=== PATIENT | male | born 1995 | race Caucasian/White ===

== ENCOUNTER 2017-07-14 22:09 | Inpatient (IN) | payer BC ==
[~2017-07-14] VITALS: Ht 182.9 cm; Wt 137.3 kg
[2017-07-14] MEDS ORDERED: LACTATED RINGER'S 1000ML 1,000 ML IV STA (22:25)
[2017-07-14 23:35] LABS: BASO % 0.1 %; BASO ABS # 0.03 K/uL (0-0.2); COMPLETE YES; HEMATOCRIT 45.2 % (42-52); IG% 0.3 %; LYMPH % 7.6 %; LYMPH ABS # 1.74 K/uL (1.2-3.4); MEAN CELL VOLUME 83.2 fL (80-100); MEAN CORPUSCULAR HEMOGLOBIN 29.1 pg (25-34); MEAN PLATELET VOLUME 10.3 fL (7.4-10.4); MONO % 7.6 %; NEUT % 84.4 %; PLATELET COUNT 308 K/uL (130-400); RED BLOOD COUNT 5.43 M/uL (4.7-6.1)
[2017-07-14 23:47] LABS: PROTHROMBIN TIME (PATIENT) 10.7 SECONDS (9.0-12.0)
[2017-07-14 23:55] LABS: ALT/SGPT 523 U/L (12-78); BLOOD UREA NITROGEN 23 mg/dl (7-18); BUN/CREATININE RATIO 14.8 (10-20); CALCIUM 9.1 mg/dl (8.5-10.1); CARBON DIOXIDE 28 mmol/L (21-32); CHLORIDE 105 mmol/L (98-107); CREATININE 1.52 mg/dl (0.60-1.40); GLUCOSE 103 mg/dl (70-99); MAGNESIUM 2.2 mg/dl (1.8-2.4); POTASSIUM 3.7 mmol/L (3.5-5.1); SODIUM 139 mmol/L (136-145)
[2017-07-15] VITALS (10 sets, daily range): BP systolic 128–161; BP diastolic 81–91; PULSE 76–96; TEMP 36.5–37.4; O2SAT 96–98; Ht 182.9 cm; Wt 137.3 kg
[2017-07-15 00:09] LABS: ALKALINE PHOSPHATASE 80 U/L (45-117)
[2017-07-15] MEDS ORDERED: LACTATED RINGER'S 1000ML 1,000 ML IV SCH ×2 (00:15→17:15)
[2017-07-15 00:33] LABS: INFLUENZA A PCR Neg for Influ A (NEG); INFLUENZA B PCR Neg for Influ B (NEG)
[2017-07-15 00:42] LABS: AST/SGOT 2566 U/L (15-37)
[2017-07-15 00:52] LABS: MANUAL MICROSCOPIC REQUIRED? YES; REVIEW REQ? NO; SULFASALICYLIC ACID POS (NEG); URINE APPEARANCE CLOUDY (CLEAR); URINE COLOR BROWN
[2017-07-15 00:53] LABS: URINE SPECIFIC GRAVITY 1.015 (1.000-1.030)
[2017-07-15 00:56] LABS: URINE AMORPHOUS SEDIMENT PRESENT (NONE PRSENT); URINE GRANULAR CAST 0-3 /lpf (0)
[2017-07-15 00:57] LABS: URINE RBC 0-4 /hpf (0-4)
[2017-07-15 00:58] LABS: URINE BACTERIA 1+ (NEG)
[2017-07-15 00:59] LABS: ZZUR CULT IF INDIC CLEAN CATCH YES
[2017-07-15] MEDS ORDERED: ONDANSETRON INJ 2 MG/ML 2 ML VIAL IV PRN (04:15)
--- NOTE | 2017-07-15 04:18 | EMERGENCY ROOM VISIT NOTE ---
History First contact with patient: 22:13 Chief Complaint: URINARY SYMPTOMS Stated Complaint: BLOOD IN URINE, FEVER Nursing Triage Summary: Pt c/o blood in urine, thinks that his CK may be off since he has muscular distrophy and went on a hike today, pt reports falling a few time. Pt denies pain with urination. History of Present Illness The patient is a 21 year old male who presents to the Emergency Room with complaints of fever, chills, muscle aches, body aches with hematuria and frothy urine the past few hours. Patient has muscular dystrophy and went on a 3 hour hike today for a school project. Shortly after this his symptoms started. Tmax 100 at home. He took Tylenol 1 hour ago. Patient denies chest pain, dyspnea, abdominal pain, vomiting, diarrhea, sore throat, headache, neck stiffness. He is tolerating by mouth fluids and food. He states his CPK normally runs around 2000. Review of Systems See HPI for pertinent positives & negatives. A total of 10 systems reviewed and were otherwise negative. Past Medical/Surgical History Medical Problems: (1) ANGE (acute kidney injury) (2) Rhabdomyolysis Muscular Dystrophy Social History Smoking Status: Never Smoker Smokeless Tobacco Use: No Alcohol Use: occasionally Drug Use: none Marital Status: in relationship Occupation Status: [employer] student Current/Historical Medications No Active Prescriptions or Reported Meds Physical Exam Vital Signs Date Time Temp Pulse Resp B/P (MAP) Pulse Ox O2 Delivery O2 Flow Rate FiO2 07/15/17 02:03 80 18 147/73 96 Room Air 07/14/17 23:19 98 Room Air 07/14/17 22:16 37.5 114 18 139/90 97 Room Air Physical Exam VITALS: Vitals are noted on the nurse's note and reviewed by myself. Vital signs mildly tachycardic GENERAL: Pleasant male, in no acute distress, nondiaphoretic, well-developed well-nourished. SKIN: The skin was without rashes, erythema, edema, or bruising. There is no tenting of the skin. Capillary reflex less than 2 seconds. HEAD: Normocephalic atraumatic. EARS: External auditory canals clear, tympanic membranes pearly [place] without erythema or effusion bilaterally. EYES: Pupils equal round and reactive to light and accommodation. Strabismus which is chronic, Conjunctivae without injection, sclerae without icterus. Extraocular movements intact. NOSE: Patent, turbinates without inflammation or discharge. No sinus tenderness. MOUTH: Mucous membranes mildly dry pharynx without erythema or exudate. Uvula midline. Airway patent. Tongue does not deviate. NECK: Supple without nuchal rigidity. No lymphadenopathy. No thyromegaly. Cervical spine is nontender. No JVD. HEART: Tachycardic rate and rhythm LUNGS: Clear to auscultation bilaterally without wheezes, rales or rhonchi. No dullness to percussion. No retractions or accessory muscle use. ABDOMEN: Positive bowel sounds x 4. Normal tympanic percussion. Soft, nontender, without masses or organomegaly. Mitchell sign negative. No guarding or rebound tenderness. No CVA tenderness MUSCULOSKELETAL: No muscle atrophy, erythema, or edema noted. NEURO: Patient was alert and oriented to person place and time. Normal sensation to light and sharp touch. No focal neurological deficits. Medical Decision & Procedures Laboratory Results 07/14/17 22:50 Red Blood Count 5.43, Mean Corpuscular Volume 83.2, Mean Corpuscular Hemoglobin 29.1, Mean Corpuscular Hemoglobin Concent 35.0, Mean Platelet Volume 10.3, Neutrophils (%) (Auto) 84.4, Lymphocytes (%) (Auto) 7.6, Monocytes (%) (Auto) 7.6, Eosinophils (%) (Auto) 0.0, Basophils (%) (Auto) 0.1, Neutrophils # (Auto) 19.41, Lymphocytes # (Auto) 1.74, Monocytes # (Auto) 1.75, Eosinophils # (Auto) 0.00, Basophils # (Auto) 0.03 07/14/17 22:50 Test 07/14/17 22:45 07/14/17 22:50 07/14/17 23:04 07/14/17 23:17 Urine Color BROWN Urine Appearance CLOUDY (CLEAR) Urine pH (4.5-7.5) Urine Specific [place] 1.015 (1.000-1.030) Urine Protein POS (NEG) Urine Glucose (UA) (NEG) Urine Ketones (NEG) Urine Occult Blood (NEG) Urine Nitrite (NEG) Urine Bilirubin (NEG) Urine Urobilinogen (NEG) Urine Leukocyte Esterase (NEG) Urine RBC 0-4 /hpf (0-4) Urine WBC 5-10 /hpf (0-5) Urine Epithelial Cells 10-20 /lpf (0-5) Urine Amorphous Sediment PRESENT (NONE PRSENT) Urine Bacteria 1+ (NEG) Urine Granular Casts 0-3 /lpf (0) White Blood Count 23.00 K/uL (4.8-10.8) Red Blood Count 5.43 M/uL (4.7-6.1) Hemoglobin 15.8 g/dL (14.0-18.0) Hematocrit 45.2 % (42-52) Mean Corpuscular Volume 83.2 fL (80-100) Mean Corpuscular Hemoglobin 29.1 pg (25-34) Mean Corpuscular Hemoglobin Concent 35.0 g/dl (32-36) Platelet Count 308 K/uL (130-400) Mean Platelet Volume 10.3 fL (7.4-10.4) Neutrophils (%) (Auto) 84.4 % Lymphocytes (%) (Auto) 7.6 % Monocytes (%) (Auto) 7.6 % Eosinophils (%) (Auto) 0.0 % Basophils (%) (Auto) 0.1 % Neutrophils # (Auto) 19.41 K/uL (1.4-6.5) Lymphocytes # (Auto) 1.74 K/uL (1.2-3.4) Monocytes # (Auto) 1.75 K/uL (0.11-0.59) Eosinophils # (Auto) 0.00 K/uL (0-0.5) Basophils # (Auto) 0.03 K/uL (0-0.2) RDW Standard Deviation 38.2 fL (36.4-46.3) RDW Coefficient of Variation 12.8 % (11.5-14.5) Immature Granulocyte % (Auto) 0.3 % Immature Granulocyte # (Auto) 0.07 K/uL (0.00-0.02) Prothrombin Time 10.7 SECONDS (9.0-12.0) Prothromb Time International Ratio 1.0 (0.9-1.1) Activated Partial Thromboplast Time 24.7 SECONDS (21.0-31.0) Partial Thromboplastin Ratio 1.0 Anion Gap 6.0 mmol/L (3-11) Est Creatinine Clear Calc Drug Dose 105.5 ml/min Estimated GFR () 74.3 Estimated GFR (Non- 64.1 BUN/Creatinine Ratio 14.8 (10-20) Calcium Level 9.1 mg/dl (8.5-10.1) Total Bilirubin 0.5 mg/dl (0.2-1) Aspartate Amino Transf (AST/SGOT) 2566 U/L (15-37) Alanine Aminotransferase (ALT/SGPT) 523 U/L (12-78) Alkaline Phosphatase 80 U/L (45-117) Total Protein 8.4 gm/dl (6.4-8.2) Albumin 4.1 gm/dl (3.4-5.0) Globulin 4.3 gm/dl (2.5-4.0) Albumin/Globulin Ratio 1.0 (0.9-2) Monoscreen NEG (NEG) Bedside Lactic Acid Venous 1.87 mmol/L (0.90-1.70) Influenza Type A (RT-PCR) Neg for Influ A (NEG) Influenza Type A Antigen Neg for Influ A (NEG) Influenza Type B Antigen Neg for Influ B (NEG) Influenza Type B (RT-PCR) Neg for Influ B (NEG) Test 07/15/17 03:48 07/15/17 04:03 Medications Administered Medications (Trade) Dose Ordered Sig/Tina Route Start Time Stop Time Status Last Admin Dose Admin Lactated Ringer's 1,000 ml @ 999 mls/hr Q1H1M STAT IV 07/14/17 22:25 07/14/17 23:25 DC 07/14/17 23:10 999 MLS/HR Lactated Ringer's 1,000 ml @ 999 mls/hr Q1H1M IV 07/15/17 00:15 07/15/17 04:29 DC 07/15/17 00:31 999 MLS/HR ED Course Prior records/ancillary studies reviewed. Triage Nursing notes reviewed. Additional history obtained from anc. The patient's history was concerning for body aches, hematuria and fever. Differential diagnosis: Etiologies such as rhabdomyolysis, viral syndrome, otitis, pharyngitis, pneumonia, influenza, meningitis, urinary tract infection, sepsis, bacteremia, as well as others were entertained. Physical examination: Patient is alert, interactive and well-appearing ER treatment provided: IV fluids On reassessment the patient felt better. Diagnostics interpreted by me: ECG: Normal sinus, normal intervals, left anterior vesicular block, no acute ST- T wave changes. Impression normal sinus rhythm with a left anterior vesicular block. Interpreted by myself The labs revealed cytosis. Elevated LFTs. Normal coags. Creatinine 1.5. CPK was run numerous times and erred on the Machine. Lab States They Will Have To Send It out As a Reference Test. Imaging studies: Chest is a with no acute consolidation, pneumothorax or free air per my interpretation Consultation: A consultation was placed with the hospitalist, Dr. Hernandez. The case was discussed and diagnostics were reviewed. The patient was evaluated in the ER for further treatment. This appears to be consistent with most likely rhabdomyolysis. Patient had Coca -Cola colored urine. He had elevated LFTs and creatinine. He had a leukocytosis. The CPK was unable to be run on lab equipment. This had to be sent out. Patient has a history of muscular dystrophy and went hiking for over 3 hours which is quite exertional for him. Patient also had body aches and fatigue which are similar to his prior episodes of rhabdomyolysis. He had a low -grade temperature so further workup was ordered and showed no other signs of serious infection. Patient was tolerating fluids. He was encouraged to drink plenty of fluids as there is a national shortage of IV fluids. By the evaluation outlined above emergent etiologies such as otitis, pharyngitis, pneumonia, meningitis, urinary tract infection, bacteremia, as well as others were deemed relatively unlikely. The pt informed about the findings as listed above. All questions were answered and pleased with the treatment. Case reviewed with my attending Medical Decision As above Medication Reconcilliation Current Medication List: was personally reviewed by me Blood Pressure Screening Patient's blood pressure: Normal blood pressure Impression Primary Impression: Rhabdomyolysis Departure Information Dispostion Being Evaluated By Hospitalist Condition FAIR Prescriptions No Active Prescriptions or Reported Meds Referrals Nichol Philip M.D. (PCP) Patient Instructions [facility] Problem Qualifiers Primary Impression: Rhabdomyolysis Rhabdomyolysis type: non-traumatic Qualified Codes: M62.82 - Rhabdomyolysis
--- NOTE | 2017-07-15 05:09 | History and Physical ---
History & Physical Date & Time of Service: Jul 15, 2017 at 04:34 Chief Complaint: Blood In Urine, Fever Primary Care Physician: Nichol Philip M.D. History of Present Illness Source: patient 21 y/o M with a history of a mild form of muscular dystrophy and a chronically elevated CK presents with weakness, red urine and a possible fever after participating in a 3 hour hike earlier on 07/13. Routine labs were obtained in the ER and revealed a CK which was undetectably high in addition to ANGE, leukocytosis and transaminitis.. He does not know his recent baseline CK but states that it is normally in the thousands. He denies CP, a cough, nausea/ vomiting/diarrhea, dysuria. Past Medical/Surgical History 1) Muscular dystrophy - unnamed, mild form per pt - possibly nonprogressive - CK is chronically high. 2) Strabismus Family History Father with CAD and histroy of quadruple bypass in 50s Social History Smoking Status: Never Smoker Smokeless Tobacco Use: No Drug Use: none Marital Status: in relationship Occupational Status: [employer] student Allergies Coded Allergies: No Known Allergies (Unverified , 07/14/17) Home Medications No Active Prescriptions or Reported Meds Review of Systems Constitutional: + weakness, No fever, No chills, No sweats Eyes: No worsening of vision ENT: No hearing loss, No nasal symptoms Respiratory: No cough, No sputum, No wheezing Cardiovascular: No chest pain, No orthopnea, No PND Abdomen: No pain, No nausea, No vomiting Musculoskeletal: No joint pain, No muscle pain Genitourinary - Male: + hematuria (red urine - myoglobin-related), No dysuria, No urinary frequency Neurologic: + weakness, No memory loss, No paralysis Psychiatric: No depression symptoms Endocrine: + fatigue Hematologic / Lymphatic: No abnormal bleeding/bruising Integumentary: No rash Allergic / Immunologic: No environmental allergies Physical Exam Vital Signs Date Time Temp Pulse Resp B/P (MAP) Pulse Ox O2 Delivery O2 Flow Rate FiO2 07/15/17 04:31 90 16 140/72 96 Room Air 07/15/17 02:03 80 18 147/73 96 Room Air 07/14/17 23:19 98 Room Air 07/14/17 22:16 37.5 114 18 139/90 97 Room Air General Appearance: WD/WN, no apparent distress Head: normocephalic Eyes: + pertinent finding (Strabismus is chronic ) ENT: normal ENT inspection, hearing grossly normal, pharynx normal Neck: supple, no JVD Respiratory/Chest: chest non-tender, lungs clear, normal breath sounds Cardiovascular: regular rate, rhythm, no edema, no gallop Abdomen/GI: normal bowel sounds, non tender, soft Back: normal inspection, no CVA tenderness, no muscle spasm, normal range of motion Extremities/Musculoskelatal: normal inspection, no calf tenderness, normal capillary refill, no pedal edema, normal range of motion Neurologic/Psych: family services coordinator II-XII nml as tested, no motor/sensory deficits, alert, oriented x 3 Skin: normal color, warm/dry Diagnostics Laboratory Results Results Past 24 Hours Test 07/14/17 22:45 07/14/17 22:50 07/14/17 23:04 07/14/17 23:17 Range/Units Urine Color BROWN Urine Appearance CLOUDY CLEAR Urine pH 4.5-7.5 Urine Specific [place] 1.015 1.000-1.030 Urine Protein POS NEG Urine Glucose (UA) NEG Urine Ketones NEG Urine Occult Blood NEG Urine Nitrite NEG Urine Bilirubin NEG Urine Urobilinogen NEG Urine Leukocyte Esterase NEG Urine RBC 0-4 0-4 /hpf Urine WBC 5-10 0-5 /hpf Urine Epithelial Cells 10-20 0-5 /lpf Urine Amorphous Sediment PRESENT NONE PRSENT Urine Bacteria 1+ NEG Urine Granular Casts 0-3 0 /lpf White Blood Count 23.00 4.8-10.8 K/uL Red Blood Count 5.43 4.7-6.1 M/uL Hemoglobin 15.8 14.0-18.0 g/dL Hematocrit 45.2 42-52 % Mean Corpuscular Volume 83.2 80-100 fL Mean Corpuscular Hemoglobin 29.1 25-34 pg Mean Corpuscular Hemoglobin Concent 35.0 32-36 g/dl Platelet Count 308 130-400 K/uL Mean Platelet Volume 10.3 7.4-10.4 fL Neutrophils (%) (Auto) 84.4 % Lymphocytes (%) (Auto) 7.6 % Monocytes (%) (Auto) 7.6 % Eosinophils (%) (Auto) 0.0 % Basophils (%) (Auto) 0.1 % Neutrophils # (Auto) 19.41 1.4-6.5 K/uL Lymphocytes # (Auto) 1.74 1.2-3.4 K/uL Monocytes # (Auto) 1.75 0.11-0.59 K/uL Eosinophils # (Auto) 0.00 0-0.5 K/uL Basophils # (Auto) 0.03 0-0.2 K/uL RDW Standard Deviation 38.2 36.4-46.3 fL RDW Coefficient of Variation 12.8 11.5-14.5 % Immature Granulocyte % (Auto) 0.3 % Immature Granulocyte # (Auto) 0.07 0.00-0.02 K/uL Prothrombin Time 10.7 9.0-12.0 SECONDS Prothromb Time International Ratio 1.0 0.9-1.1 Activated Partial Thromboplast Time 24.7 21.0-31.0 SECONDS Partial Thromboplastin Ratio 1.0 Sodium Level 139 136-145 mmol/L Potassium Level 3.7 3.5-5.1 mmol/L Chloride Level 105 98-107 mmol/L Carbon Dioxide Level 28 21-32 mmol/L Anion Gap 6.0 3-11 mmol/L Blood Urea Nitrogen 23 7-18 mg/dl Creatinine 1.52 0.60-1.40 mg/dl Est Creatinine Clear Calc Drug Dose 105.5 ml/min Estimated GFR () 74.3 Estimated GFR (Non- 64.1 BUN/Creatinine Ratio 14.8 10-20 Random Glucose 103 70-99 mg/dl Calcium Level 9.1 8.5-10.1 mg/dl Magnesium Level 2.2 1.8-2.4 mg/dl Total Bilirubin 0.5 0.2-1 mg/dl Aspartate Amino Transf (AST/SGOT) 2566 15-37 U/L Alanine Aminotransferase (ALT/SGPT) 523 12-78 U/L Alkaline Phosphatase 80 45-117 U/L Total Protein 8.4 6.4-8.2 gm/dl Albumin 4.1 3.4-5.0 gm/dl Globulin 4.3 2.5-4.0 gm/dl Albumin/Globulin Ratio 1.0 0.9-2 Monoscreen NEG NEG Bedside Lactic Acid Venous 1.87 0.90-1.70 mmol/L Influenza Type A (RT-PCR) Neg for Influ A NEG Influenza Type A Antigen Neg for Influ A NEG Influenza Type B Antigen Neg for Influ B NEG Influenza Type B (RT-PCR) Neg for Influ B NEG Test 07/15/17 03:48 07/15/17 04:03 Range/Units Microbiology Results 07/14/17 Blood Culture, Received Pending 07/14/17 Blood Culture, Received Pending 07/14/17 Urine Culture, Received Pending EKG NSR - LAFB Impression Assessment and Plan 21 y/o M with a history of a mild form of muscular dystrophy and a chronically elevated CK presents with weakness, red urine and a possible fever after participating in a 3 hour hike earlier on 07/13. Routine labs were obtained in the ER and revealed a CK which was undetectably high in addition to ANGE, leukocytosis and transaminitis. There were no red cells in his UA. He does not know his recent baseline CK but states that it is normally in the thousands. He denies CP, a cough, nausea/vomiting/diarrhea, dysuria. 1) Pt with significant rhabdomyolysis - the pt will be aggressively hydrated and received 2 L of Ringers in the ER initially. He will be monitored on telemetry and electrolytes will be checked Q4h - no abnormalities noted on initial labs. We will consider urine alkalinization if a urine PH is below 6.5. 2) Mild ANGE is present - this is concerning however if it is related to direct injury from rhabdo rather than being prerenal. With any significant worsening, would consider transfer to a tertiary center (He follows at [place] for his muscular dystrophy), as there is some evidence for continuous hemodialysis to treat associated critical electrolyte abnormalities. We have requested a nephrology consult. 3) Regarding his chronically elevated CK, we may need to contact his specialist at [place] to set a recovery target as he runs in the thousands at baseline. 4) LFTs are elevated which is common with rhabdomyolysis. We will trend to insure this is strictly correlated with his current condition. 5) Leukocytosis is present. There is no focus of infection or evidence of a temp above 100 to merit empiric antibiotics. Cultures were obtained in the ER. 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 He is assigned to telemetry. Full code - Heparin prophylaxis Total time for this admit including review of labs, meds, imaging - discussion with pt and ER attending - 38 min Level of Care Telemetry Resuscitation Status FULL RESUSCITATION VTE Prophylaxis VTE Risk Assessment Done? Y/N: Yes Risk Level: Moderate Given or contraindicated: Unfractionated heparin SQ
[2017-07-15] MEDS: SODIUM CHLORIDE 0.9% 1000ML 1,000 ML IV SCH ×8 (05:47→22:38)
[2017-07-15 07:22] LABS: MAGNESIUM 2.1 mg/dl (1.8-2.4); PHOSPHORUS 4.3 mg/dl (2.5-4.9)
--- NOTE | 2017-07-15 07:33 | DIAGNOSTIC IMAGING REPORT ---
CHEST 2 VIEWS ROUTINE HISTORY: fever COMPARISON: None. FINDINGS: The lungs are clear. Cardiac silhouette is normal in size. No pleural effusions. No pneumothorax. IMPRESSION: No acute process. Electronically signed by: Giancarlo Marie M.D. 07/15/2017 7:32 AM Dictated Date/Time: 07/15/2017 7:31 AM
[2017-07-15 08:20] LABS: URINE APPEARANCE CLOUDY (CLEAR); URINE BILIRUBIN NEG (NEG); URINE COLOR YELLOW; URINE NITRITE NEG (NEG); URINE SPECIFIC GRAVITY 1.015 (1.000-1.030); UROBILINOGEN NEG (NEG)
[2017-07-15 08:23] LABS: MANUAL MICROSCOPIC REQUIRED? NO; REVIEW REQ? YES
[2017-07-15] MEDS: HEPARIN SOD 5000 UNIT/0.5 ML CARP SQ SCH ×3 (08:38→20:49)
[2017-07-15 08:55] LABS: URINE PATH CASTS 5-10 GRANULAR CASTS /lpf (0)
[2017-07-15 09:26] LABS: BUN/CREATININE RATIO 14.4 (10-20); CALCIUM 8.9 mg/dl (8.5-10.1); CREATININE 1.8 mg/dl (0.60-1.40); POTASSIUM 4.1 mmol/L (3.5-5.1)
[2017-07-15 10:39] LABS: HEMATOCRIT 39.8 % (42-52); MEAN CELL VOLUME 83.6 fL (80-100); MEAN CORPUSCULAR HEMOGLOBIN 28.6 pg (25-34); MEAN CORPUSCULAR HGB CONC 34.2 g/dl (32-36); MEAN PLATELET VOLUME 10.4 fL (7.4-10.4); PLATELET COUNT 252 K/uL (130-400); RED BLOOD COUNT 4.76 M/uL (4.7-6.1); WHITE BLOOD COUNT 17.35 K/uL (4.8-10.8)
[2017-07-15 10:40] LABS: BASO % 0.1 %; BASO ABS # 0.02 K/uL (0-0.2); COMPLETE YES; EOS % 0.2 %; IG% 0.3 %; LYMPH % 11.4 %; LYMPH ABS # 1.98 K/uL (1.2-3.4); MONO % 8.7 %; NEUT % 79.3 %; PLT ESTIMATE NORMAL; TOXIC GRANULATION 1+; VACUOLIZATION 1+
[2017-07-15 12:52] LABS: BUN/CREATININE RATIO 12.5 (10-20); CALCIUM 8.6 mg/dl (8.5-10.1); CREATININE 1.95 mg/dl (0.60-1.40); MAGNESIUM 2.1 mg/dl (1.8-2.4); POTASSIUM 4.1 mmol/L (3.5-5.1)
[2017-07-15 12:57] LABS: PHOSPHORUS 2.8 mg/dl (2.5-4.9)
--- NOTE | 2017-07-15 13:18 | Nephrology Consultation ---
Nephrology Consultation Date & Providers Date of Consultation: Jul 15, 2017. Primary Care Provider: Nichol Philip M.D. Referring Provider: Reason for Consultation Rhabdomyolysis; ANGE History of Present Illness Mr. Greyson Boss is a 21 year-old male with a muscular dystrophy. He reports muscle weakness with abnormal growth as a child. He underwent an evaluation and eventually muscle biopsy. He has never had rhabdomyolysis or ANGE in the past. He does have chronically elevated CPK levels in the range of [id number] by report. He was most recently evaluated in the neuromuscular disease clinic at [facility] within the past year. Greyson developed diffuse myalgias following a hike with his fiance yesterday. He reports using his arms to climb uphill. At the end of the hike he was feeling weak and dizzy. His fiance was concerned that Greyson's lips were blue. Urine subsequently turned dark red. He denies any passage of clots. He denies dysuria. He developed a temperature at home of 100.3 degree and took 400 mg of Ibuprofen. He then presented to the ED for evaluation. CPK was too high to quantify. IVF was started. Following boluses of NS, he was started on maintenance fluid. He has been tolerating infusions well. Myalgias are improving. He denies any tight or swollen muscle compartments. He describes tenderness in shoulders, arms, thighs and calfs. Urine is starting to clear. It remains slightly red. Laboratory studies are also notable for transaminitis and ANGE. Greyson denies any other medication or illicit substance use. He denies alcohol use. There were no sick contacts. He has not had any additional fevers or chills. Past Medical/Surgical History Medical: -- Muscular dystrophy Surgical: -- Muscle biopsy as a child Allergies Coded Allergies: No Known Allergies (Unverified , 07/14/17) Inpatient Medications Current Inpatient Medications Medications (Trade) Dose Ordered Sig/Tina Route Start Time Stop Time Status Last Admin Dose Admin Sodium Chloride 1,000 ml @ 400 mls/hr Q2H30M IV 07/15/17 04:15 07/15/17 16:44 07/15/17 11:24 400 MLS/HR Heparin Sodium (Porcine) (Heparin Sq 5000 Unit/0.5ml) 5,000 unit Q8 SQ 07/15/17 06:00 08/14/17 05:59 Acetaminophen (Tylenol Tab) 650 mg Q4H PRN PO 07/15/17 04:15 08/14/17 04:14 Ondansetron HCl (Zofran Inj) 4 mg Q6H PRN IV 07/15/17 04:15 08/14/17 04:14 Family History Coronary artery disease Social History Smoking Status: Never Smoker Smokeless Tobacco Use: No Drug Use: none Marital Status: in relationship Occupation: [employer] student Lives locally with his fiance. Student at [employer]. Parents live in [place] [facility] [place]. Review of Systems A complete review of systems was performed. Pertinent positives are noted above. All other systems are negative. Physical Exam Date Time Temp Pulse Resp B/P (MAP) Pulse Ox O2 Delivery O2 Flow Rate FiO2 07/15/17 12:00 97 Room Air 07/15/17 11:20 36.7 85 18 128/81 (97) 97 Room Air 07/15/17 08:00 98 Room Air 07/15/17 07:19 36.5 96 18 131/85 (100) 98 Room Air 07/15/17 04:45 36.8 83 20 130/83 96 Room Air 07/15/17 04:45 96 Room Air 07/15/17 04:31 90 16 140/72 96 Room Air 07/15/17 02:03 80 18 147/73 96 Room Air 07/14/17 23:19 98 Room Air 07/14/17 22:16 37.5 114 18 139/90 97 Room Air General Appearance: no apparent distress, + obese Head: normocephalic, atraumatic Eyes: normal inspection, sclerae normal ENT: normal ENT inspection, pharynx normal Neck: supple, no JVD Respiratory/Chest: lungs clear, no respiratory distress, no accessory muscle use Cardiovascular: regular rate, rhythm, no gallop, no murmur Abdomen/GI: non tender, soft Back: no CVA tenderness Extremities/Musculoskelatal: normal inspection, normal capillary refill, no pedal edema, + pertinent finding (muscle compartments are soft and peripheral pulses normal) Neurologic/Psych: alert, normal mood/affect Skin: normal color Laboratory Results Last 24 Hours Test 07/14/17 22:45 07/14/17 22:50 07/14/17 23:04 07/14/17 23:17 Urine Color BROWN Urine Appearance CLOUDY Urine pH Urine Specific [place] 1.015 Urine Protein POS Urine Glucose (UA) Urine Ketones Urine Occult Blood Urine Nitrite Urine Bilirubin Urine Urobilinogen Urine Leukocyte Esterase Urine RBC 0-4 /hpf Urine WBC 5-10 /hpf Urine Epithelial Cells 10-20 /lpf Urine Amorphous Sediment PRESENT Urine Bacteria 1+ Urine Granular Casts 0-3 /lpf White Blood Count 23.00 K/uL Red Blood Count 5.43 M/uL Hemoglobin 15.8 g/dL Hematocrit 45.2 % Mean Corpuscular Volume 83.2 fL Mean Corpuscular Hemoglobin 29.1 pg Mean Corpuscular Hemoglobin Concent 35.0 g/dl Platelet Count 308 K/uL Mean Platelet Volume 10.3 fL Neutrophils (%) (Auto) 84.4 % Lymphocytes (%) (Auto) 7.6 % Monocytes (%) (Auto) 7.6 % Eosinophils (%) (Auto) 0.0 % Basophils (%) (Auto) 0.1 % Neutrophils # (Auto) 19.41 K/uL Lymphocytes # (Auto) 1.74 K/uL Monocytes # (Auto) 1.75 K/uL Eosinophils # (Auto) 0.00 K/uL Basophils # (Auto) 0.03 K/uL RDW Standard Deviation 38.2 fL RDW Coefficient of Variation 12.8 % Immature Granulocyte % (Auto) 0.3 % Immature Granulocyte # (Auto) 0.07 K/uL Prothrombin Time 10.7 SECONDS Prothromb Time International Ratio 1.0 Activated Partial Thromboplast Time 24.7 SECONDS Partial Thromboplastin Ratio 1.0 Sodium Level 139 mmol/L Potassium Level 3.7 mmol/L Chloride Level 105 mmol/L Carbon Dioxide Level 28 mmol/L Anion Gap 6.0 mmol/L Blood Urea Nitrogen 23 mg/dl Creatinine 1.52 mg/dl Est Creatinine Clear Calc Drug Dose 105.5 ml/min Estimated GFR () 74.3 Estimated GFR (Non- 64.1 BUN/Creatinine Ratio 14.8 Random Glucose 103 mg/dl Calcium Level 9.1 mg/dl Magnesium Level 2.2 mg/dl Total Bilirubin 0.5 mg/dl Aspartate Amino Transf (AST/SGOT) 2566 U/L Alanine Aminotransferase (ALT/SGPT) 523 U/L Alkaline Phosphatase 80 U/L Total Creatine Kinase U/L Total Protein 8.4 gm/dl Albumin 4.1 gm/dl Globulin 4.3 gm/dl Albumin/Globulin Ratio 1.0 Hepatitis B Surface Antigen NEG Hepatitis C Antibody NEG Monoscreen NEG Bedside Lactic Acid Venous 1.87 mmol/L Influenza Type A (RT-PCR) Neg for Influ A Influenza Type A Antigen Neg for Influ A Influenza Type B Antigen Neg for Influ B Influenza Type B (RT-PCR) Neg for Influ B Test 07/15/17 01:58 07/15/17 05:32 07/15/17 07:55 07/15/17 08:00 Total Creatine Kinase U/L U/L White Blood Count 17.35 K/uL Red Blood Count 4.76 M/uL Hemoglobin 13.6 g/dL Hematocrit 39.8 % Mean Corpuscular Volume 83.6 fL Mean Corpuscular Hemoglobin 28.6 pg Mean Corpuscular Hemoglobin Concent 34.2 g/dl Platelet Count 252 K/uL Mean Platelet Volume 10.4 fL Neutrophils (%) (Auto) 79.3 % Lymphocytes (%) (Auto) 11.4 % Monocytes (%) (Auto) 8.7 % Eosinophils (%) (Auto) 0.2 % Basophils (%) (Auto) 0.1 % Neutrophils # (Auto) 13.75 K/uL Lymphocytes # (Auto) 1.98 K/uL Monocytes # (Auto) 1.51 K/uL Eosinophils # (Auto) 0.04 K/uL Basophils # (Auto) 0.02 K/uL RDW Standard Deviation 38.7 fL RDW Coefficient of Variation 12.8 % Immature Granulocyte % (Auto) 0.3 % Immature Granulocyte # (Auto) 0.05 K/uL Toxic Granulation 1+ Toxic Vacuolation 1+ Platelet Estimate NORMAL Phosphorus Level 4.3 mg/dl Magnesium Level 2.1 mg/dl Urine Color YELLOW Urine Appearance CLOUDY Urine pH 5.0 Urine Specific [place] 1.015 Urine Protein 2+ Urine Glucose (UA) NEG Urine Ketones NEG Urine Occult Blood 3+ Urine Nitrite NEG Urine Bilirubin NEG Urine Urobilinogen NEG Urine Leukocyte Esterase NEG Urine WBC (Auto) 1-5 /hpf Urine RBC (Auto) 0-4 /hpf Urine Hyaline Casts (Auto) 1-5 /lpf Urine Epithelial Cells (Auto) 10-20 /lpf Urine Bacteria (Auto) NEG Urine Crystals AMORPHOUS SEDIMENT Urine Pathogenic Casts 5-10 GRANULAR CASTS /lpf Urine Yeast (Auto) Sodium Level 141 mmol/L Potassium Level 4.1 mmol/L Chloride Level 109 mmol/L Carbon Dioxide Level 24 mmol/L Anion Gap 8.0 mmol/L Blood Urea Nitrogen 26 mg/dl Creatinine 1.80 mg/dl Est Creatinine Clear Calc Drug Dose 89.1 ml/min Estimated GFR () 60.6 Estimated GFR (Non- 52.3 BUN/Creatinine Ratio 14.4 Random Glucose 101 mg/dl Calcium Level 8.9 mg/dl Test 07/15/17 12:08 Sodium Level 140 mmol/L Potassium Level 4.1 mmol/L Chloride Level 110 mmol/L Carbon Dioxide Level 23 mmol/L Anion Gap 7.0 mmol/L Blood Urea Nitrogen 24 mg/dl Creatinine 1.95 mg/dl Est Creatinine Clear Calc Drug Dose 82.2 ml/min Estimated GFR () 55.0 Estimated GFR (Non- 47.4 BUN/Creatinine Ratio 12.5 Random Glucose 100 mg/dl Calcium Level 8.6 mg/dl Phosphorus Level 2.8 mg/dl Magnesium Level 2.1 mg/dl Total Creatine Kinase U/L Impression (1) Rhabdomyolysis (2) ANGE (acute kidney injury) Greyson is a 21-year-old male with muscular dystrophy who was admitted with rhabdomyolysis and ANGE. Urine analysis notable for myoglobin and granular cast. This is consistent with rhabdomyolysis and ATN. The patient is non oliguric. He is tolerating saline infusion well. No evidence of compartment syndrome. Recommendations -- Obtain records regarding underlying muscular dystrophy from [facility] -- Monitor CPK q 6 hours (CPK sent to outside lab to quantify) -- Monitor metabolic profile at least twice daily -- Continue saline infusion: NS @ 400 ml/hr -- IVF to maintain a UOP goal of approximately 200+ ml/hr -- Document I/O's -- Check magnesium and phosphorus level daily -- Avoid NSAIDs
--- NOTE | 2017-07-15 14:46 | Progress Note ---
Subjective Date of Service: Jul 15, 2017. Subjective Pt evaluation today including: conversation w/ patient, conversation w/ family , physical exam, chart review, lab review, review of studies, conversation w/ energy sales consultant, review of inpatient medication list Laboratory feeling okay, no obvious complaint, denied chest pain, fever or chill Review of Systems Constitutional: No fever, No chills, No sweats, No weight loss, No weakness, No problem reported Eyes: No worsening of vision, No eye pain, No redness, No discharge, No diplopia ENT: No hearing loss, No unusual epistaxis, No nasal symptoms, No sore throat, No tinnitus, No dental problems, No trouble swallowing Respiratory: No cough, No sputum, No wheezing, No shortness of breath, No dyspnea on exertion, No dyspnea at rest, No hemoptysis Cardiac: No chest pain, No orthopnea, No PND, No edema, No claudication, No palpitations Abdomen: No pain, No nausea, No vomiting, No diarrhea, No constipation Musculoskeletal: No joint pain, No muscle pain, No swelling, No calf pain Male : No dysuria, No urinary frequency, No incontinence, No nocturia more than once/night, No slowing stream, No hematuria Neurologic: No memory loss, No paralysis, No weakness, No numbness/tingling, No vertigo, No balance problems Psychiatric: No depression symptoms, No anhedonism, No anxiety, No insomnia, No substance abuse Heme: No abnormal bleeding/bruising, No clotting problems, No swollen lymph nodes, No night sweats Endo: No fatigue, No excessive thirst, No excessive urination Skin: No rash, No itch, No new/changing skin lesions, No color change, No bleeding Objective Vital Signs Date Time Temp Pulse Resp B/P (MAP) Pulse Ox O2 Delivery O2 Flow Rate FiO2 07/15/17 12:00 97 Room Air 07/15/17 11:20 36.7 85 18 128/81 (97) 97 Room Air 07/15/17 08:00 98 Room Air 07/15/17 07:19 36.5 96 18 131/85 (100) 98 Room Air 07/15/17 04:45 36.8 83 20 130/83 96 Room Air 07/15/17 04:45 96 Room Air 07/15/17 04:31 90 16 140/72 96 Room Air 07/15/17 02:03 80 18 147/73 96 Room Air 07/14/17 23:19 98 Room Air 07/14/17 22:16 37.5 114 18 139/90 97 Room Air Physical Exam General Appearance: WD/WN, no apparent distress, + obese Eyes: normal inspection, PERRL, EOMI, sclerae normal ENT: normal ENT inspection, hearing grossly normal, pharynx normal Neck: supple, no adenopathy, thyroid normal, no JVD, no carotid bruits, trachea midline Respiratory/Chest: chest non-tender, normal breath sounds, no respiratory distress, no accessory muscle use, + decreased breath sounds Cardiovascular: regular rate, rhythm, no edema, no gallop, no JVD, no murmur Abdomen: normal bowel sounds, non tender, soft, no organomegaly, no pulsatile mass Extremities: normal range of motion, non-tender, normal inspection, no pedal edema, no calf tenderness, normal capillary refill, pelvis stable Neurologic/Psychiatric: ada accommodation consultant II-XII nml as tested, alert, normal mood/affect, oriented x 3, + abnormal cerebellar tests Skin: normal color, warm/dry, no rash Lymphatic: no adenopathy Laboratory Results Last 24 Hours Test 07/14/17 22:45 07/14/17 22:50 07/14/17 23:04 07/14/17 23:17 Urine Color BROWN Urine Appearance CLOUDY Urine pH Urine Specific [place] 1.015 Urine Protein POS Urine Glucose (UA) Urine Ketones Urine Occult Blood Urine Nitrite Urine Bilirubin Urine Urobilinogen Urine Leukocyte Esterase Urine RBC 0-4 /hpf Urine WBC 5-10 /hpf Urine Epithelial Cells 10-20 /lpf Urine Amorphous Sediment PRESENT Urine Bacteria 1+ Urine Granular Casts 0-3 /lpf White Blood Count 23.00 K/uL Red Blood Count 5.43 M/uL Hemoglobin 15.8 g/dL Hematocrit 45.2 % Mean Corpuscular Volume 83.2 fL Mean Corpuscular Hemoglobin 29.1 pg Mean Corpuscular Hemoglobin Concent 35.0 g/dl Platelet Count 308 K/uL Mean Platelet Volume 10.3 fL Neutrophils (%) (Auto) 84.4 % Lymphocytes (%) (Auto) 7.6 % Monocytes (%) (Auto) 7.6 % Eosinophils (%) (Auto) 0.0 % Basophils (%) (Auto) 0.1 % Neutrophils # (Auto) 19.41 K/uL Lymphocytes # (Auto) 1.74 K/uL Monocytes # (Auto) 1.75 K/uL Eosinophils # (Auto) 0.00 K/uL Basophils # (Auto) 0.03 K/uL RDW Standard Deviation 38.2 fL RDW Coefficient of Variation 12.8 % Immature Granulocyte % (Auto) 0.3 % Immature Granulocyte # (Auto) 0.07 K/uL Prothrombin Time 10.7 SECONDS Prothromb Time International Ratio 1.0 Activated Partial Thromboplast Time 24.7 SECONDS Partial Thromboplastin Ratio 1.0 Sodium Level 139 mmol/L Potassium Level 3.7 mmol/L Chloride Level 105 mmol/L Carbon Dioxide Level 28 mmol/L Anion Gap 6.0 mmol/L Blood Urea Nitrogen 23 mg/dl Creatinine 1.52 mg/dl Est Creatinine Clear Calc Drug Dose 105.5 ml/min Estimated GFR () 74.3 Estimated GFR (Non- 64.1 BUN/Creatinine Ratio 14.8 Random Glucose 103 mg/dl Calcium Level 9.1 mg/dl Magnesium Level 2.2 mg/dl Total Bilirubin 0.5 mg/dl Aspartate Amino Transf (AST/SGOT) 2566 U/L Alanine Aminotransferase (ALT/SGPT) 523 U/L Alkaline Phosphatase 80 U/L Total Creatine Kinase U/L Total Protein 8.4 gm/dl Albumin 4.1 gm/dl Globulin 4.3 gm/dl Albumin/Globulin Ratio 1.0 Hepatitis B Surface Antigen NEG Hepatitis C Antibody NEG Monoscreen NEG Bedside Lactic Acid Venous 1.87 mmol/L Influenza Type A (RT-PCR) Neg for Influ A Influenza Type A Antigen Neg for Influ A Influenza Type B Antigen Neg for Influ B Influenza Type B (RT-PCR) Neg for Influ B Test 07/15/17 01:58 07/15/17 05:32 07/15/17 07:55 07/15/17 08:00 Total Creatine Kinase U/L U/L White Blood Count 17.35 K/uL Red Blood Count 4.76 M/uL Hemoglobin 13.6 g/dL Hematocrit 39.8 % Mean Corpuscular Volume 83.6 fL Mean Corpuscular Hemoglobin 28.6 pg Mean Corpuscular Hemoglobin Concent 34.2 g/dl Platelet Count 252 K/uL Mean Platelet Volume 10.4 fL Neutrophils (%) (Auto) 79.3 % Lymphocytes (%) (Auto) 11.4 % Monocytes (%) (Auto) 8.7 % Eosinophils (%) (Auto) 0.2 % Basophils (%) (Auto) 0.1 % Neutrophils # (Auto) 13.75 K/uL Lymphocytes # (Auto) 1.98 K/uL Monocytes # (Auto) 1.51 K/uL Eosinophils # (Auto) 0.04 K/uL Basophils # (Auto) 0.02 K/uL RDW Standard Deviation 38.7 fL RDW Coefficient of Variation 12.8 % Immature Granulocyte % (Auto) 0.3 % Immature Granulocyte # (Auto) 0.05 K/uL Toxic Granulation 1+ Toxic Vacuolation 1+ Platelet Estimate NORMAL Phosphorus Level 4.3 mg/dl Magnesium Level 2.1 mg/dl Urine Color YELLOW Urine Appearance CLOUDY Urine pH 5.0 Urine Specific [place] 1.015 Urine Protein 2+ Urine Glucose (UA) NEG Urine Ketones NEG Urine Occult Blood 3+ Urine Nitrite NEG Urine Bilirubin NEG Urine Urobilinogen NEG Urine Leukocyte Esterase NEG Urine WBC (Auto) 1-5 /hpf Urine RBC (Auto) 0-4 /hpf Urine Hyaline Casts (Auto) 1-5 /lpf Urine Epithelial Cells (Auto) 10-20 /lpf Urine Bacteria (Auto) NEG Urine Crystals AMORPHOUS SEDIMENT Urine Pathogenic Casts 5-10 GRANULAR CASTS /lpf Urine Yeast (Auto) Sodium Level 141 mmol/L Potassium Level 4.1 mmol/L Chloride Level 109 mmol/L Carbon Dioxide Level 24 mmol/L Anion Gap 8.0 mmol/L Blood Urea Nitrogen 26 mg/dl Creatinine 1.80 mg/dl Est Creatinine Clear Calc Drug Dose 89.1 ml/min Estimated GFR () 60.6 Estimated GFR (Non- 52.3 BUN/Creatinine Ratio 14.4 Random Glucose 101 mg/dl Calcium Level 8.9 mg/dl Test 07/15/17 12:08 Sodium Level 140 mmol/L Potassium Level 4.1 mmol/L Chloride Level 110 mmol/L Carbon Dioxide Level 23 mmol/L Anion Gap 7.0 mmol/L Blood Urea Nitrogen 24 mg/dl Creatinine 1.95 mg/dl Est Creatinine Clear Calc Drug Dose 82.2 ml/min Estimated GFR () 55.0 Estimated GFR (Non- 47.4 BUN/Creatinine Ratio 12.5 Random Glucose 100 mg/dl Calcium Level 8.6 mg/dl Phosphorus Level 2.8 mg/dl Magnesium Level 2.1 mg/dl Total Creatine Kinase U/L Assessment and Plan 21 y/o M admitted because of rhabdomyolysis associated with weakness, red urine and a possible fever The symptom developed after participating in a 3 hour hike earlier on 07/13. rhabdomyolysis - the pt will be aggressively hydrated and received 2 L of [place] in the ER initially. Mild acute kidney failure likely from direct injury from rhabdo rather than being prerenal. nephrology consult done, continue follow-up a history of a mild form of muscular dystrophy and a chronically elevated CK Liver enzyme are elevated which is because of rhabdo and elevated CPK, the enzyme is released from rhabdo as well , not from liver damage Leukocytosis is present, no obvious signs of infection, will follow-up blood culture EKG is abnormal indicating Left anterior fascicular block - this may be his baseline and is not currently associated with any electrolyte abnormalities. Advised him to follow-up with his PCP Full code - Heparin prophylaxis Discussed with patient and family answered all questions Continued [facility] stay due to: multiple IV medications needed Discharge planning: home
[2017-07-15 16:18] LABS: BUN/CREATININE RATIO 11.8 (10-20); CALCIUM 8.7 mg/dl (8.5-10.1); CREATININE 2.12 mg/dl (0.60-1.40); POTASSIUM 4.3 mmol/L (3.5-5.1)
--- NOTE | 2017-07-15 17:21 | DIAGNOSTIC IMAGING REPORT ---
(RENAL)RETROPERITON COMP CLINICAL HISTORY: 21 years-old Male presenting with ANGE. TECHNIQUE: Real-time grayscale and limited color Doppler ultrasound imaging of the kidneys and bladder was performed. COMPARISON: None. FINDINGS: Right kidney: Increased parenchymal echogenicity. Right kidney measures 11.5 cm. No hydronephrosis. No convincing evidence of calculus or mass. Normal perfusion. Left kidney: Increased parenchymal echogenicity. Left kidney measures 12.7 cm. No hydronephrosis. No convincing evidence of calculus or mass. Normal perfusion. Bladder: Incompletely distended. Ureteral jets not visualized. Otherwise normal in appearance. Other: None. IMPRESSION: 1. Increased renal parenchymal echogenicity suggests medical renal disease. No obstruction. Electronically signed by: Rivera Childress M.D. 07/15/2017 5:20 PM Dictated Date/Time: 07/15/2017 5:13 PM
[2017-07-15] MEDS: ACETAMINOPHEN 325 MG TAB PO PRN (18:19)
[2017-07-15] MEDS ORDERED: NURSING VERBAL MED ORDER ONE ×2 (19:15→19:30)
[2017-07-15 21:21] LABS: BLOOD UREA NITROGEN 24 mg/dl (7-18); BUN/CREATININE RATIO 10.1 (10-20); CALCIUM 8.4 mg/dl (8.5-10.1); CARBON DIOXIDE 24 mmol/L (21-32); CHLORIDE 114 mmol/L (98-107); GLUCOSE 103 mg/dl (70-99); MAGNESIUM 2.1 mg/dl (1.8-2.4); POTASSIUM 4.2 mmol/L (3.5-5.1); SODIUM 143 mmol/L (136-145)
[2017-07-15 21:48] LABS: PHOSPHORUS 3.1 mg/dl (2.5-4.9)
[2017-07-16 00:13] LABS: BUN/CREATININE RATIO 9.5 (10-20); CALCIUM 8.3 mg/dl (8.5-10.1); CREATININE 2.43 mg/dl (0.60-1.40); POTASSIUM 4.3 mmol/L (3.5-5.1)
[2017-07-16] MEDS: SODIUM CHLORIDE 0.9% 1000ML 1,000 ML IV SCH ×7 (01:55→23:30)
[2017-07-16] MEDS: ACETAMINOPHEN 325 MG TAB PO PRN ×2 (02:29→17:06)
[2017-07-16 04:02] VITALS: BP 138/91; PULSE 91; TEMP 37; O2SAT 96
[2017-07-16 04:49] LABS: ALT/SGPT 432 U/L (12-78); BLOOD UREA NITROGEN 21 mg/dl (7-18); BUN/CREATININE RATIO 8.6 (10-20); CALCIUM 8.5 mg/dl (8.5-10.1); CARBON DIOXIDE 22 mmol/L (21-32); CHLORIDE 116 mmol/L (98-107); CREATININE 2.47 mg/dl (0.60-1.40); GLUCOSE 106 mg/dl (70-99); POTASSIUM 4.4 mmol/L (3.5-5.1); SODIUM 143 mmol/L (136-145)
[2017-07-16] MEDS: HEPARIN SOD 5000 UNIT/0.5 ML CARP SQ SCH ×3 (05:13→21:52)
[2017-07-16 05:25] LABS: ALKALINE PHOSPHATASE 56 U/L (45-117); AST/SGOT 1612 U/L (15-37); PHOSPHORUS 3.5 mg/dl (2.5-4.9)
[2017-07-16 07:52] VITALS: BP 151/85; PULSE 79; TEMP 36.8; O2SAT 96
[2017-07-16 08:39] LABS: BUN/CREATININE RATIO 8.4 (10-20); CALCIUM 8.8 mg/dl (8.5-10.1); CREATININE 2.35 mg/dl (0.60-1.40); POTASSIUM 4.3 mmol/L (3.5-5.1)
--- NOTE | 2017-07-16 10:44 | Nephrology Progress Note ---
Nephrology Progress Note Date of Service Jul 16, 2017. Chief Complaint Follow-up for acute kidney injury with rhabdomyolysis. Subjective Joby Was seen and examined in his room this morning with his family at bedside. Overall he has been feeling well although occasionally feels bloated in his abdomen, had bowel movement yesterday. Has been having decent urine output and urine has been much clear since yesterday. Blood pressure stable. Appetite has been improving, denies shortness of breath or chest pain. Creatinine seems to be stabilizing, 2.5 today, CPK level still pending. Review of Systems A complete review of systems was performed. Pertinent positives are noted above. All other systems are negative. Vital Signs Last 8 Hrs Date Time Temp Pulse Resp B/P (MAP) Pulse Ox O2 Delivery O2 Flow Rate FiO2 07/16/17 08:00 Room Air 07/16/17 07:52 36.8 79 20 151/85 (107) 96 07/16/17 04:02 37.0 91 18 138/91 (107) 96 Room Air 07/16/17 04:00 Room Air Last Recorded Weight Weight (Kilograms): 132.000 Physical Exam GENERAL: young male , AAA x 3, pleasant, healthy-appearing, not in any distress. NECK: Supple, no JVD. RESPIRATORY: Normal breathing efforts, no accessory muscle use, clear to auscultation bilaterally, no wheezes or rales. CARDIOVASCULAR: S1, S2 normal, rate rhythm regular. EXTREMITY: No lower extremity edema NEURO: speech fluent. PSYCHIATRY: Normal mood and judgment Family History Coronary artery disease Social History Smokeless Tobacco Use: No Drug Use: none Marital Status: in relationship Occupation: [employer] student Lives locally with his fiance. Student at [employer]. Parents live in [facility]. Laboratory Results Past 24 Hours 07/15/17 12:08 07/15/17 15:49 07/15/17 20:07 07/15/17 23:35 07/16/17 04:20 07/16/17 07:54 Test 07/15/17 12:08 07/15/17 15:49 07/15/17 20:07 07/15/17 23:35 Anion Gap 7.0 mmol/L (3-11) 5.0 mmol/L (3-11) 5.0 mmol/L (3-11) 4.0 mmol/L (3-11) Est Creatinine Clear Calc Drug Dose 82.2 ml/min 75.6 ml/min 66.8 ml/min 66.0 ml/min Estimated GFR () 55.0 49.7 42.8 42.1 Estimated GFR (Non- 47.4 42.9 36.9 36.4 BUN/Creatinine Ratio 12.5 (10-20) 11.8 (10-20) 10.1 (10-20) 9.5 (10-20) Calcium Level 8.6 mg/dl (8.5-10.1) 8.7 mg/dl (8.5-10.1) 8.4 mg/dl (8.5-10.1) 8.3 mg/dl (8.5-10.1) Phosphorus Level 2.8 mg/dl (2.5-4.9) 3.1 mg/dl (2.5-4.9) Magnesium Level 2.1 mg/dl (1.8-2.4) 2.1 mg/dl (1.8-2.4) Total Creatine Kinase U/L (39-308) U/L (39-308) Test 07/16/17 04:20 07/16/17 07:54 Anion Gap 5.0 mmol/L (3-11) 8.0 mmol/L (3-11) Est Creatinine Clear Calc Drug Dose 64.9 ml/min 69.3 ml/min Estimated GFR () 41.3 43.9 Estimated GFR (Non- 35.6 37.9 BUN/Creatinine Ratio 8.6 (10-20) 8.4 (10-20) Calcium Level 8.5 mg/dl (8.5-10.1) 8.8 mg/dl (8.5-10.1) Phosphorus Level 3.5 mg/dl (2.5-4.9) Magnesium Level 2.0 mg/dl (1.8-2.4) Total Bilirubin 0.8 mg/dl (0.2-1) Direct Bilirubin 0.2 mg/dl (0-0.2) Aspartate Amino Transf (AST/SGOT) 1612 U/L (15-37) Alanine Aminotransferase (ALT/SGPT) 432 U/L (12-78) Alkaline Phosphatase 56 U/L (45-117) Total Creatine Kinase U/L (39-308) Total Protein 6.1 gm/dl (6.4-8.2) Albumin 2.9 gm/dl (3.4-5.0) Allergies Coded Allergies: No Known Allergies (Unverified , 07/14/17) Medications Current Inpatient Medications Medications (Trade) Dose Ordered Sig/Tina Route Start Time Stop Time Status Last Admin Dose Admin Heparin Sodium (Porcine) (Heparin Sq 5000 Unit/0.5ml) 5,000 unit Q8 SQ 07/15/17 06:00 08/14/17 05:59 Acetaminophen (Tylenol Tab) 650 mg Q4H PRN PO 07/15/17 04:15 08/14/17 04:14 07/16/17 02:29 650 MG Ondansetron HCl (Zofran Inj) 4 mg Q6H PRN IV 07/15/17 04:15 08/14/17 04:14 Sodium Chloride 1,000 ml @ 300 mls/hr Q3H20M IV 07/15/17 19:30 08/14/17 19:29 07/16/17 08:33 300 MLS/HR Impression (1) Rhabdomyolysis (2) ANGE (acute kidney injury) Greyson is a 21-year-old male with muscular dystrophy who was admitted with rhabdomyolysis and ANGE. Urine analysis notable for myoglobin and granular cast. This is consistent with rhabdomyolysis and ATN. The patient is non oliguric. He is tolerating saline infusion well. No evidence of compartment syndrome. Recommendations -- creatinine stabilizing, expect renal function to stabilize and slowly start to improve -- Monitor CPK q 6 hours (CPK sent to outside lab to quantify) -- Monitor metabolic profile at least twice daily -- continue IVF to maintain a UOP goal of approximately 200+ ml/hr -- Document I/O's -- Check magnesium and phosphorus level daily -- Avoid NSAIDs Hold discharge until we see improvement in renal function and the CPK level.
[2017-07-16 12:34] VITALS: BP 159/99; PULSE 61; TEMP 36.5; O2SAT 99
[2017-07-16 13:02] LABS: BUN/CREATININE RATIO 8.4 (10-20); CALCIUM 8.5 mg/dl (8.5-10.1); CREATININE 2.31 mg/dl (0.60-1.40); POTASSIUM 4.2 mmol/L (3.5-5.1)
--- NOTE | 2017-07-16 14:23 | Progress Note ---
Subjective Date of Service: Jul 16, 2017. Subjective Pt evaluation today including: conversation w/ patient, conversation w/ family , physical exam, chart review, lab review, review of studies, review of inpatient medication list doing well, sitting up in chair, no complaining, no more muscle ache Review of Systems Constitutional: + weakness, + fatigue, No fever, No chills, No sweats, No weight loss, No problem reported Eyes: No worsening of vision, No eye pain, No redness, No discharge, No diplopia ENT: No hearing loss, No unusual epistaxis, No nasal symptoms, No sore throat, No tinnitus, No dental problems, No trouble swallowing Respiratory: No cough, No sputum, No wheezing, No shortness of breath, No dyspnea on exertion, No dyspnea at rest, No hemoptysis Cardiac: No chest pain, No orthopnea, No PND, No edema, No claudication, No palpitations Abdomen: No pain, No nausea, No vomiting, No diarrhea, No constipation Musculoskeletal: No joint pain, No muscle pain, No swelling, No calf pain Male : No dysuria, No urinary frequency, No incontinence, No nocturia more than once/night, No slowing stream, No hematuria Neurologic: No memory loss, No paralysis, No weakness, No numbness/tingling, No vertigo, No balance problems Psychiatric: No depression symptoms, No anhedonism, No anxiety, No insomnia, No substance abuse Heme: No abnormal bleeding/bruising, No clotting problems, No swollen lymph nodes, No night sweats Endo: No fatigue, No excessive thirst, No excessive urination Skin: No rash, No itch, No new/changing skin lesions, No color change, No bleeding Objective Vital Signs Date Time Temp Pulse Resp B/P (MAP) Pulse Ox O2 Delivery O2 Flow Rate FiO2 07/16/17 12:34 36.5 61 18 159/99 (119) 99 Room Air 07/16/17 08:00 Room Air 07/16/17 07:52 36.8 79 20 151/85 (107) 96 07/16/17 04:02 37.0 91 18 138/91 (107) 96 Room Air 07/16/17 04:00 Room Air 07/16/17 00:00 Room Air 07/15/17 23:47 37.2 89 18 161/90 (113) 97 Room Air 07/15/17 20:00 96 Room Air 07/15/17 19:31 37.4 86 16 147/87 (107) 96 Room Air 07/15/17 16:00 96 Room Air 07/15/17 15:12 36.9 76 16 145/91 (109) 96 Physical Exam General Appearance: WD/WN, no apparent distress, + obese, + pertinent finding Eyes: normal inspection, PERRL, EOMI, sclerae normal ENT: normal ENT inspection, hearing grossly normal, pharynx normal Neck: supple, no adenopathy, thyroid normal, no JVD, no carotid bruits, trachea midline Respiratory/Chest: chest non-tender, lungs clear, normal breath sounds, no respiratory distress, no accessory muscle use Cardiovascular: regular rate, rhythm, no edema, no gallop, no JVD, no murmur Abdomen: normal bowel sounds, non tender, soft, no organomegaly, no pulsatile mass Extremities: normal range of motion, non-tender, normal inspection, no pedal edema, no calf tenderness, normal capillary refill, pelvis stable Neurologic/Psychiatric: core dipper II-XII nml as tested, no motor/sensory deficits, alert, normal mood/affect, oriented x 3 Skin: normal color, warm/dry, no rash Lymphatic: no adenopathy Laboratory Results Last 24 Hours Test 07/15/17 15:49 07/15/17 20:07 07/15/17 23:35 07/16/17 04:20 Sodium Level 142 mmol/L 143 mmol/L 143 mmol/L 143 mmol/L Potassium Level 4.3 mmol/L 4.2 mmol/L 4.3 mmol/L 4.4 mmol/L Chloride Level 112 mmol/L 114 mmol/L 114 mmol/L 116 mmol/L Carbon Dioxide Level 25 mmol/L 24 mmol/L 25 mmol/L 22 mmol/L Anion Gap 5.0 mmol/L 5.0 mmol/L 4.0 mmol/L 5.0 mmol/L Blood Urea Nitrogen 25 mg/dl 24 mg/dl 23 mg/dl 21 mg/dl Creatinine 2.12 mg/dl 2.40 mg/dl 2.43 mg/dl 2.47 mg/dl Est Creatinine Clear Calc Drug Dose 75.6 ml/min 66.8 ml/min 66.0 ml/min 64.9 ml/min Estimated GFR () 49.7 42.8 42.1 41.3 Estimated GFR (Non- 42.9 36.9 36.4 35.6 BUN/Creatinine Ratio 11.8 10.1 9.5 8.6 Random Glucose 105 mg/dl 103 mg/dl 104 mg/dl 106 mg/dl Calcium Level 8.7 mg/dl 8.4 mg/dl 8.3 mg/dl 8.5 mg/dl Phosphorus Level 3.1 mg/dl 3.5 mg/dl Magnesium Level 2.1 mg/dl 2.0 mg/dl Total Creatine Kinase U/L U/L Total Bilirubin 0.8 mg/dl Direct Bilirubin 0.2 mg/dl Aspartate Amino Transf (AST/SGOT) 1612 U/L Alanine Aminotransferase (ALT/SGPT) 432 U/L Alkaline Phosphatase 56 U/L Total Protein 6.1 gm/dl Albumin 2.9 gm/dl Test 07/16/17 07:54 07/16/17 09:27 07/16/17 12:18 Sodium Level 144 mmol/L 143 mmol/L Potassium Level 4.3 mmol/L 4.2 mmol/L Chloride Level 115 mmol/L 115 mmol/L Carbon Dioxide Level 21 mmol/L 23 mmol/L Anion Gap 8.0 mmol/L 5.0 mmol/L Blood Urea Nitrogen 20 mg/dl 19 mg/dl Creatinine 2.35 mg/dl 2.31 mg/dl Est Creatinine Clear Calc Drug Dose 69.3 ml/min 70.5 ml/min Estimated GFR () 43.9 44.8 Estimated GFR (Non- 37.9 38.7 BUN/Creatinine Ratio 8.4 8.4 Random Glucose 103 mg/dl 83 mg/dl Calcium Level 8.8 mg/dl 8.5 mg/dl Lab Scanned Report Lab Referral [id number] Assessment and Plan 21 y/o M admitted because of rhabdomyolysis associated with weakness, red urine and a possible fever Acute rhabdomyolysis, associated with acute kidney failure, stable and improving the pt will be aggressively hydrated and received 2 L of Ringers in the ER initially. Mild acute kidney failure likely from direct injury from rhabdo rather than being prerenal. Total CK level: 097745 (07/14/2017) to 809558 on 07/15/2017, and underwent lab will be able to detect 100,000, continue Monitor CPK q 6 hours (CPK sent to outside lab to quantify, Monitor metabolic profile at least twice daily Recommendation from continue IVF to maintain a UOP goal of approximately 200+ ml /hr, trach I/O's, Check magnesium and phosphorus level daily , Avoid NSAIDs a history of a mild form of muscular dystrophy and a chronically elevated CK Liver enzyme are elevated which is because of rhabdo and elevated CPK, the enzyme is released from rhabdo as well , not from liver damage Leukocytosis is present, no obvious signs of infection, will follow-up blood culture EKG is abnormal indicating Left anterior fascicular block - this may be his baseline and is not currently associated with any electrolyte abnormalities. Advised him to follow-up with his PCP Full code - Heparin prophylaxis Discussed with patient and family, call to pt's mom [phone], message left for her to call me back Continued [facility] stay due to: multiple IV medications needed Discharge planning: home
[2017-07-16 15:30] VITALS: BP 128/74; PULSE 92; TEMP 37; O2SAT 98
[2017-07-16 19:53] VITALS: BP 149/87; PULSE 67; TEMP 36.9; O2SAT 98
[2017-07-16 23:05] VITALS: BP 143/86; PULSE 64; TEMP 36.8; O2SAT 96
[2017-07-17] MEDS: SODIUM CHLORIDE 0.9% 1000ML 1,000 ML IV SCH ×3 (02:17→07:50)
[2017-07-17 03:56] VITALS: BP 134/86; PULSE 88; TEMP 36.6; O2SAT 95
[2017-07-17] MEDS: HEPARIN SOD 5000 UNIT/0.5 ML CARP SQ SCH ×3 (05:58→22:00)
[2017-07-17 07:48] LABS: CALCIUM 8.5 mg/dl (8.5-10.1); CREATININE 2.12 mg/dl (0.60-1.40); POTASSIUM 4.2 mmol/L (3.5-5.1)
[2017-07-17 08:24] LABS: PHOSPHORUS 2.8 mg/dl (2.5-4.9)
[2017-07-17] MEDS: SODIUM BICARBONATE 8.4% INJ 150 MEQ in DEXTROSE 5% 1000ML 1,000 ML IV SCH ×3 (11:04→22:27)
--- NOTE | 2017-07-17 11:22 | Nephrology Progress Note ---
Nephrology Progress Note Date of Service Jul 17, 2017. Chief Complaint Follow-up for acute kidney injury with rhabdomyolysis. Subjective Joby was seen and examined with family at bedside. Feeling congested at times but denies SOB, CP. No fever, cough, chills. BP well controlled. Decent UO. Cr down to 2.1[place] [address]. [place] [address] Review of Systems A complete review of systems was performed. Pertinent positives are noted above. All other systems are negative. Vital Signs Last 8 Hrs Date Time Temp Pulse Resp B/P (MAP) Pulse Ox O2 Delivery O2 Flow Rate FiO2 07/17/17 08:00 Room Air 07/17/17 04:09 Room Air 07/17/17 03:56 36.6 88 20 134/86 (102) 95 Room Air Last Recorded Weight Weight (Kilograms): 135.800 Physical Exam GENERAL: young male , AAA x 3, pleasant, healthy-appearing, not in any distress. NECK: Supple, no JVD. RESPIRATORY: Normal breathing efforts, no accessory muscle use, clear to auscultation bilaterally, no wheezes or rales. CARDIOVASCULAR: S1, S2 normal, rate rhythm regular. EXTREMITY: No lower extremity edema NEURO: speech fluent. PSYCHIATRY: Normal mood and judgment Family History Coronary artery disease Social History Smokeless Tobacco Use: No Drug Use: none Marital Status: in relationship Occupation: [employer] student Lives locally with his fiance. Student at [employer]. Parents live in [place]. Laboratory Results Past 24 Hours 07/16/17 12:18 07/17/17 07:05 Test 07/16/17 12:18 07/16/17 19:10 07/17/17 07:05 Anion Gap 5.0 mmol/L (3-11) 8.0 mmol/L (3-11) Est Creatinine Clear Calc Drug Dose 70.5 ml/min 78.0 ml/min Estimated GFR () 44.8 49.7 Estimated GFR (Non- 38.7 42.9 BUN/Creatinine Ratio 8.4 (10-20) 7.0 (10-20) Calcium Level 8.5 mg/dl (8.5-10.1) 8.5 mg/dl (8.5-10.1) Total Creatine Kinase 40278 U/L (39-308) 85156 U/L (39-308) Phosphorus Level 2.8 mg/dl (2.5-4.9) Albumin 3.2 gm/dl (3.4-5.0) Allergies Coded Allergies: No Known Allergies (Unverified , 07/14/17) Medications Current Inpatient Medications Medications (Trade) Dose Ordered Sig/Tina Route Start Time Stop Time Status Last Admin Dose Admin Heparin Sodium (Porcine) (Heparin Sq 5000 Unit/0.5ml) 5,000 unit Q8 SQ 07/15/17 06:00 08/14/17 05:59 Acetaminophen (Tylenol Tab) 650 mg Q4H PRN PO 07/15/17 04:15 08/14/17 04:14 07/16/17 17:06 650 MG Ondansetron HCl (Zofran Inj) 4 mg Q6H PRN IV 07/15/17 04:15 08/14/17 04:14 Sodium Bicarbonate 150 meq/Dextrose 1,150 ml @ 250 mls/hr Q4H36M IV 07/17/17 11:00 08/16/17 10:59 07/17/17 11:04 250 MLS/HR Impression (1) Rhabdomyolysis (2) ANGE (acute kidney injury) Greyson is a 21-year-old male with muscular dystrophy who was admitted with rhabdomyolysis and ANGE. Urine analysis notable for myoglobin and granular cast. This is consistent with rhabdomyolysis and ATN. The patient is non oliguric. He is tolerating saline infusion well. No evidence of compartment syndrome. Recommendations -- creatinine continues to improve -- Monitor CPK q 12 hours -- Monitor metabolic profile daily -- change IVF to D5W with bicarb at 200 mls/H maintain a UOP goal of approximately 200+ ml/hr -- Document I/O's -- Avoid NSAIDs Possible discharge tomorrow if all parameters improve
[2017-07-17 12:00] VITALS: BP 132/87; PULSE 74; TEMP 37.1; O2SAT 93
[2017-07-17] MEDS ORDERED: NURSING VERBAL MED ORDER ONE (12:00)
[2017-07-17] MEDS ORDERED: GUAIFENESIN 600 MG TABCR PO PRN (12:00)
[2017-07-17] MEDS: ACETAMINOPHEN 325 MG TAB PO PRN ×2 (12:19→16:46)
--- NOTE | 2017-07-17 12:27 | Progress Note ---
Subjective Date of Service: Jul 17, 2017. Subjective Pt evaluation today including: conversation w/ patient, physical exam, chart review, lab review, review of studies, conversation w/ senior erp consultant, review of inpatient medication list Some throat congestion feeling Review of Systems Constitutional: + fatigue, No fever, No chills, No sweats, No weight loss, No weakness, No problem reported Eyes: No worsening of vision, No eye pain, No redness, No discharge, No diplopia ENT: No hearing loss, No unusual epistaxis, No nasal symptoms, No sore throat, No tinnitus, No dental problems, No trouble swallowing Respiratory: + cough (and congestion), No sputum, No wheezing, No shortness of breath, No dyspnea on exertion, No dyspnea at rest, No hemoptysis Cardiac: No chest pain, No orthopnea, No PND, No edema, No claudication, No palpitations Abdomen: No pain, No nausea, No vomiting, No diarrhea, No constipation Musculoskeletal: No joint pain, No muscle pain, No swelling, No calf pain Male : No dysuria, No urinary frequency, No incontinence, No nocturia more than once/night, No slowing stream, No hematuria Neurologic: No memory loss, No paralysis, No weakness, No numbness/tingling, No vertigo, No balance problems Psychiatric: No depression symptoms, No anhedonism, No anxiety, No insomnia, No substance abuse Heme: No abnormal bleeding/bruising, No clotting problems, No swollen lymph nodes, No night sweats Endo: No fatigue, No excessive thirst, No excessive urination Skin: No rash, No itch, No new/changing skin lesions, No color change, No bleeding Objective Vital Signs Date Time Temp Pulse Resp B/P (MAP) Pulse Ox O2 Delivery O2 Flow Rate FiO2 07/17/17 08:00 Room Air 07/17/17 04:09 Room Air 07/17/17 03:56 36.6 88 20 134/86 (102) 95 Room Air 07/16/17 23:49 Room Air 07/16/17 23:05 36.8 64 16 143/86 (105) 96 Room Air 07/16/17 19:53 36.9 67 20 149/87 (107) 98 Room Air 07/16/17 19:53 Room Air 07/16/17 16:00 Room Air 07/16/17 15:30 37.0 92 18 128/74 (92) 98 Room Air 07/16/17 12:34 36.5 61 18 159/99 (119) 99 Room Air Physical Exam General Appearance: WD/WN, no apparent distress, + obese Eyes: normal inspection, PERRL, EOMI, sclerae normal ENT: normal ENT inspection, hearing grossly normal, pharynx normal, + pertinent finding (mild dry lips) Neck: supple, no adenopathy, thyroid normal, no JVD, no carotid bruits, trachea midline Respiratory/Chest: chest non-tender, normal breath sounds, no respiratory distress, no accessory muscle use, + decreased breath sounds Cardiovascular: regular rate, rhythm, no edema, no gallop, no JVD, no murmur Abdomen: normal bowel sounds, non tender, soft, no organomegaly, no pulsatile mass Extremities: normal range of motion, non-tender, normal inspection, no pedal edema, no calf tenderness, normal capillary refill, pelvis stable Neurologic/Psychiatric: operating room manager II-XII nml as tested, no motor/sensory deficits, alert, normal mood/affect, oriented x 3 Skin: normal color, warm/dry, no rash Lymphatic: no adenopathy Laboratory Results Last 24 Hours Test 07/16/17 19:10 07/17/17 07:05 Total Creatine Kinase 43914 U/L 48889 U/L Sodium Level 143 mmol/L Potassium Level 4.2 mmol/L Chloride Level 116 mmol/L Carbon Dioxide Level 19 mmol/L Anion Gap 8.0 mmol/L Blood Urea Nitrogen 15 mg/dl Creatinine 2.12 mg/dl Est Creatinine Clear Calc Drug Dose 78.0 ml/min Estimated GFR () 49.7 Estimated GFR (Non- 42.9 BUN/Creatinine Ratio 7.0 Random Glucose 100 mg/dl Calcium Level 8.5 mg/dl Phosphorus Level 2.8 mg/dl Albumin 3.2 gm/dl Assessment and Plan 21 y/o M admitted because of rhabdomyolysis associated with weakness, red urine and a possible fever on 07/15/2017 Acute rhabdomyolysis, associated with acute kidney failure, likely ATN , stable and improving received 2 L of Ringers in the ER initially, has been continue aggressive hydration after admitted to the hospital Total CK level: 297906 (07/14/2017) to 804907 on 07/15/2017, and yesterday CPK 93 605 to today [id number] Intermediate Frame Tender as recommended change IVF to D5W with bicarb at 200 mls/hr, continue follow-up a history of a mild form of muscular dystrophy and a chronically elevated CK, per patient baseline is around the 30 k Liver enzyme are elevated which is because of rhabdo and elevated CPK, the enzyme is released from rhabdo as well , not from liver damage Leukocytosis is present, no obvious signs of infection, will follow-up blood culture EKG is abnormal indicating Left anterior fascicular block - this may be his baseline and is not currently associated with any electrolyte abnormalities. Advised him to follow-up with his PCP Full code - Heparin prophylaxis Discussed with patient and family, called to pt's mom [phone], discussed and answered all questions Medical record from patient's PCP was requested, not arriving yet Continued [facility] stay due to: multiple IV medications needed Discharge planning: home
[2017-07-17 16:00] VITALS: BP 135/82; PULSE 61; TEMP 36.8; O2SAT 96
[2017-07-17 19:57] VITALS: BP 153/97; PULSE 91; TEMP 36.7; O2SAT 94
[2017-07-17] MEDS ORDERED: MoRPHine SULFATE 4 MG/ML 1 ML CARP\\VIAL IV PRN (20:30)
[2017-07-18] VITALS (12 sets, daily range): BP systolic 128–179; BP diastolic 59–102; PULSE 71–105; TEMP 36.5–37.3; O2SAT 85–97
[2017-07-18] MEDS: SODIUM BICARBONATE 8.4% INJ 150 MEQ in DEXTROSE 5% 1000ML 1,000 ML IV SCH (03:55)
[2017-07-18] MEDS: HEPARIN SOD 5000 UNIT/0.5 ML CARP SQ SCH ×2 (05:48→13:34)
--- NOTE | 2017-07-18 07:39 | DIAGNOSTIC IMAGING REPORT ---
CHEST ONE VIEW PORTABLE HISTORY: 21 years-old Male hypoxia acute hypoxia COMPARISON: Chest radiograph 07/14/2017 TECHNIQUE: Portable upright AP view of the chest FINDINGS: Cardiac silhouette is upper limits of normal, likely secondary to mild hypoinflation. There is no pneumothorax or large pleural effusion. There are hazy bibasilar opacities which are subsegmental. Bones of the chest are grossly intact. IMPRESSION: Hazy subsegmental bibasilar opacities suggest atelectasis or pneumonia. The above report was generated using voice recognition software. It may contain grammatical, syntax or spelling errors. Electronically signed by: Saad Gutiérrez M.D. 07/18/2017 7:38 AM Dictated Date/Time: 07/18/2017 7:36 AM
[2017-07-18 07:45] LABS: BUN/CREATININE RATIO 4.8 (10-20); CALCIUM 8.8 mg/dl (8.5-10.1); CREATININE 2.13 mg/dl (0.60-1.40); MAGNESIUM 1.7 mg/dl (1.8-2.4); PHOSPHORUS 3.1 mg/dl (2.5-4.9); POTASSIUM 3.4 mmol/L (3.5-5.1)
[2017-07-18] MEDS: ACETAMINOPHEN 325 MG TAB PO PRN (08:03)
[2017-07-18] MEDS ORDERED: POTASSIUM CHLORIDE 10 MEQ TABCR PO STA (09:49)
[2017-07-18] MEDS ORDERED: HydrALAZINE HCL 20 MG/ML VIAL ONE (09:55)
[2017-07-18] MEDS ORDERED: HydrALAZINE HCL 20 MG/ML VIAL IV. PRN (10:00)
[2017-07-18] MEDS: MAGNESIUM OXIDE 400 MG TAB PO SCH ×2 (11:14→11:15)
--- NOTE | 2017-07-18 11:31 | Nephrology Progress Note ---
Nephrology Progress Note Date of Service Jul 18, 2017. Chief Complaint Follow-up for acute kidney injury with rhabdomyolysis. Subjective The Joby was seen and examined in his room this morning. Denies any shortness of breath, no episode of fever or chills. Blood pressure has been running high. Creatinine remained stable at 2.1. CPK a improved further to 18,769. Continues to have decent urine output but has been net positive. Review of Systems A complete review of systems was performed. Pertinent positives are noted above. All other systems are negative. Vital Signs Last 8 Hrs Date Time Temp Pulse Resp B/P (MAP) Pulse Ox O2 Delivery O2 Flow Rate FiO2 07/18/17 09:48 169/102 (124) 07/18/17 08:30 Room Air 07/18/17 08:22 36.7 71 20 179/83 (115) 91 Room Air 07/18/17 05:48 92 Room Air 07/18/17 05:05 94 Nasal Cannula 2.0 07/18/17 05:04 85 Room Air 07/18/17 04:52 37.2 105 20 151/94 (113) 90 Room Air 07/18/17 04:00 Room Air Last Recorded Weight Weight (Kilograms): 137.300 Physical Exam GENERAL: young male , AAA x 3, pleasant, healthy-appearing, not in any distress. NECK: Supple, no JVD. RESPIRATORY: Normal breathing efforts, no accessory muscle use, clear to auscultation bilaterally, no wheezes or rales. CARDIOVASCULAR: S1, S2 normal, rate rhythm regular. EXTREMITY: No lower extremity edema NEURO: speech fluent. PSYCHIATRY: Normal mood and judgment Family History Coronary artery disease Social History Smokeless Tobacco Use: No Drug Use: none Marital Status: in relationship Occupation: [employer] student Lives locally with his fiance. Student at [employer]. Parents live in [facility]. Laboratory Results Past 24 Hours 07/18/17 06:58 Test 07/17/17 19:11 07/18/17 06:58 Total Creatine Kinase 38092 U/L (39-308) 24877 U/L (39-308) Anion Gap 7.0 mmol/L (3-11) Est Creatinine Clear Calc Drug Dose 78.1 ml/min Estimated GFR () 49.4 Estimated GFR (Non- 42.6 BUN/Creatinine Ratio 4.8 (10-20) Calcium Level 8.8 mg/dl (8.5-10.1) Phosphorus Level 3.1 mg/dl (2.5-4.9) Magnesium Level 1.7 mg/dl (1.8-2.4) Albumin 3.0 gm/dl (3.4-5.0) Allergies Coded Allergies: No Known Allergies (Unverified , 07/14/17) Medications Current Inpatient Medications Medications (Trade) Dose Ordered Sig/Tina Route Start Time Stop Time Status Last Admin Dose Admin Heparin Sodium (Porcine) (Heparin Sq 5000 Unit/0.5ml) 5,000 unit Q8 SQ 07/15/17 06:00 08/14/17 05:59 Acetaminophen (Tylenol Tab) 650 mg Q4H PRN PO 07/15/17 04:15 08/14/17 04:14 07/18/17 08:03 650 MG Ondansetron HCl (Zofran Inj) 4 mg Q6H PRN IV 07/15/17 04:15 08/14/17 04:14 07/17/17 13:24 4 MG Sodium Bicarbonate 150 meq/Dextrose 1,150 ml @ 200 mls/hr Q5H45M IV 07/17/17 11:00 08/16/17 10:59 07/18/17 03:55 200 MLS/HR Guaifenesin (Mucinex Contr Rel Tab) 600 mg Q12H PRN PO 07/17/17 12:00 08/16/17 11:59 07/17/17 12:22 600 MG Morphine Sulfate (MoRPHine SULFATE INJ) 3 mg Q8H PRN IV 07/17/17 20:30 07/31/17 20:29 07/17/17 21:26 3 MG Hydralazine HCl (HydrALAZINE INJ) 20 mg Q6 PRN IV. 07/18/17 10:00 08/17/17 09:59 Magnesium Oxide (Mag-Ox Tab) 400 mg BID PO 07/18/17 21:00 08/17/17 20:59 Impression (1) Rhabdomyolysis (2) ANGE (acute kidney injury) Greyson is a 21-year-old male with muscular dystrophy who was admitted with rhabdomyolysis and ANGE. Urine analysis notable for myoglobin and granular cast. This is consistent with rhabdomyolysis and ATN. The patient is non oliguric. He is tolerating saline infusion well. No evidence of compartment syndrome. Recommendations -- discontinue IV fluid, as CPK continues to improve and decreased to 18,000 with patient's baseline being around 30,000, and seems to be getting slightly volume overloaded. Electrolyte abnormality resolved. Renal function seems to have stabilized and may take some time for kidney function to improve as the improvement has been very slow -- Avoid NSAIDs --as patient is eager to get discharge, creatinine stabilized and CPK improved, okay to be discharged this afternoon with close outpatient lab monitoring. Patient will need to have renal panel and CPK checked tomorrow and follow-up appointment with his primary care physician and outpatient Nephrology follow-up with Dr. Kelley sometime next week. --although chest x-ray was concerning for possible pneumonia or volume overload , clinically patient is asymptomatic and not suggestive of pneumonia, advise patient to come to the emergency room if he developed fever, chills, shortness of Breath or cough --encourage patient to continue to drink plenty of liquids at home
[2017-07-18] MEDS ORDERED: MGNO400 PO (15:39)
[2017-07-18] MEDS ORDERED: GFNSR600 PO (15:39)
--- NOTE | 2017-07-18 15:39 | Discharge Instructions ---
Discharge Instructions Date of Service Jul 18, 2017. Admission Reason for Admission: Eddie, Rhabdomyolysis Discharge Discharge Diagnosis / Problem: rhabdomyolysis associated with weakness, Discharge Goals Goal(s): Decrease discomfort, Improve function, Increase independence, Improve disease control, Improve nutritional status, Learn about illness, Diagnostic testing, Therapeutic intervention, Prevent Disease Progression, Specific goals Activity Recommendations Activity Limitations: resume your previous activity . Instructions / Follow-Up Instructions / Follow-Up You have rhabdomyolysis , juaniur total CK level: 756911 (07/14/2017) to 778235 on 07/15/2017, today is 18,000 you have history of a mild form of muscular dystrophy and a chronically elevated CK, and you reported baseline is around the 30 k Recommended plenty oral fluid intake I'm giving prescription for lab of cpk, bmp to be done tomorrow, and report the results to Dr. Kelley You need to follow-up with Dr. Kelley in 1 week- you need to follow up with your primary care physician in 1 week, - call your [place] if have any questions - take medication as instructed, never overdose or any misuse, or take with alcohol, because misuse of medicine may cause organ damage or , call your primary care physician if have questions of medicaitons. - diet as instructed - you need to follow up with your subspecialist - you should understand that it is important to follow up the above instruction , and "not following the above instruction" may cause delayed or missed care of your medical conditions which may cause permanent organ damage and even . Current Hospital Diet Patient's current hospital diet: Regular Diet Discharge Diet Recommended Diet: Regular Diet Procedures Procedures Performed: No Pending Studies Studies pending at discharge: no Medical Emergencies . Who to Call and When: Medical Emergencies: If at any time you feel your situation is an emergency, please call 911 immediately. . Non-Emergent Contact Non-Emergency issues call your: Primary Care Provider . . "Provider Documentation" section prepared by Italo Langley. . VTE Core Measure Inpt VTE Proph given/why not?: Unfractionated heparin SQ
[2017-07-18] MEDS ORDERED: FAMO20TA9 PO (15:41)
[2017-07-18] MEDS ORDERED: FAMOTIDINE 20 MG TAB PO ONE (15:45)
--- NOTE | 2017-07-18 15:59 | Discharge Summary ---
Discharge Summary Date of Service Jul 18, 2017. Discharge Summary Admission Date: Jul 16, 2017 at 09:27 Discharge Date: Jul 18, 2017 Principal Diagnosis: acute rhabdomyolysis Problems/Secondary Diagnoses: muscular dystrophy Acute kidney failure stable Accelerated hypertension Procedures: No Consultations: Fusion Juncture Grinder Medication Reconciliation New Medications: Famotidine (Pepcid) 20 Mg Tab 1 TAB PO BID for 7 Days, #14 TAB 5 Refills Guaifenesin Ext Rel (Mucinex Ext Rel) 600 Mg Tabcr 600 MG PO Q12H PRN for CONGESTION for 7 Days Magnesium Oxide (Magnesium-Oxide) 400 Mg Tab 400 MG PO BID for 7 Days, #14 TAB Discharge Exam Was nausea and vomiting 1 Improved, up and walk, blood pressure was high, now is better Review of Systems: Constitutional: No fever, No chills, No sweats, No weight loss, No weakness , No fatigue, No problem reported Eyes: No worsening of vision, No eye pain, No redness, No discharge, No diplopia, No problem reported ENT: No hearing loss, No unusual epistaxis, No nasal symptoms, No sore throat, No tinnitus, No dental problems, No trouble swallowing, No problem reported Respiratory: No cough, No sputum, No wheezing, No shortness of breath, No dyspnea on exertion, No dyspnea at rest, No hemoptysis, No problem reported Cardiovascular: No chest pain, No orthopnea, No PND, No edema, No claudication, No palpitations, No problem reported Abdomen: No pain, No nausea, No vomiting, No diarrhea, No constipation, No GI bleeding, No problem reported Musculoskeletal: No joint pain, No muscle pain, No swelling, No calf pain, No problem reported Genitourinary - Male: No hematuria, No dysuria, No urinary frequency, No urinary urgency, No urinary hesitancy, No urinary retention, No urinary incontinence, No penile discharge, No lesions, No impotence, No problem reported Neurologic: No memory loss, No paralysis, No weakness, No numbness/tingling , No vertigo, No balance problems, No problem reported Psychiatric: No depression symptoms, No anhedonism, No anxiety, No insomnia , No substance abuse, No problem reported Endocrine: No fatigue, No excessive thirst, No excessive urination, No problem reported Hematologic / Lymphatic: No abnormal bleeding/bruising, No clotting problems , No swollen lymph nodes, No night sweats, No problem reported Integumentary: No rash, No itch, No new/changing skin lesions, No color change, No bleeding, No problem reported Physical Exam: General Appearance: WD/WN, no apparent distress Eyes: normal inspection, PERRL ENT: normal ENT inspection, hearing grossly normal Neck: supple, no adenopathy Respiratory/Chest: chest non-tender, normal breath sounds, no respiratory distress, + decreased breath sounds Cardiovascular: regular rate, rhythm, no edema, no gallop, no JVD, no murmur Abdomen / GI: normal bowel sounds, non tender, soft, no organomegaly, no pulsatile mass Extremities: normal inspection, no calf tenderness, normal capillary refill 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, no motor/sensory deficits , alert, normal mood/affect Skin: normal color, warm/dry Hospital Course 21 y/o M admitted because of rhabdomyolysis associated with weakness, red urine and a possible fever on 07/15/2017 Acute rhabdomyolysis, associated with acute kidney failure, likely ATN , stable and improving received 2 L of Ringers in the ER initially, has been continue aggressive hydration after admitted to the hospital Total CK level: 919023 (07/14/2017) to [id number] on 07/15/2017, and yesterday CPK 93 605 to today 19404 Fusion Juncture Grinder as recommended change IVF to D5W with bicarb at 200 mls/hr, Today sufficient level was 18,000 a history of a mild form of muscular dystrophy and a chronically elevated CK, per patient baseline is around the 30 k acute kidney failure, likely ATN , stable Liver enzyme are elevated which is because of rhabdo and elevated CPK, the enzyme is released from rhabdo as well , not from liver damage, Leukocytosis is present, no obvious signs of infection, will follow-up blood culture EKG is abnormal indicating Left anterior fascicular block - this may be his baseline and is not currently associated with any electrolyte abnormalities. Advised him to follow-up with his PCP Episode of nausea vomiting 1 today, resolved Accelerated hypertension, required 1 dose of Hydralazine today, improved now, advised patient need to follow-up with PCP about this, call PCP if we are dizziness headache or palpitation Discussed with patient's other family members in the bedside about care plan, answered all the questions Full code - Heparin prophylaxis Discussed with patient and family, called to pt's mom [phone], discussed and answered all questions Medical record from patient's PCP was requested, not arriving yet Instructions / Follow-Up You have rhabdomyolysis , keely total CK level: 235550 (07/14/2017) to [id number] on 07/15/2017, today is 18,000 you have history of a mild form of muscular dystrophy and a chronically elevated CK, and you reported baseline is around the 30 k Recommended plenty oral fluid intake I'm giving prescription for lab of cpk, bmp to be done tomorrow, and report the results to Dr. Kelley You need to follow-up with Dr. Kelley in 1 week- you need to follow up with your primary care physician in 1 week, - call your [facility] if have any questions - take medication as instructed, never overdose or any misuse, or take with alcohol, because misuse of medicine may cause organ damage or , call your primary care physician if have questions of medicaitons. - diet as instructed - you need to follow up with your subspecialist - you should understand that it is important to follow up the above instruction , and "not following the above instruction" may cause delayed or missed care of your medical conditions which may cause permanent organ damage and even . Total Time Spent: Greater than 30 minutes This includes examination of the patient, discharge planning, medication reconciliation, and communication with other providers. Discharge Instructions Please refer to the electronic Patient Visit Report (Discharge Instructions) for additional information. Additional Copies To Nichol Philip M.D.; Jg Kelley D.O.
[2017-07-18] MEDS ORDERED: FAMOTIDINE 20 MG TAB PO SCH (21:00)
== END 2017-07-18 16:10 | disposition home or self-care (01) | DRG 557 ==
LOC: C.EDB 22:11 → C.MED 07-15 04:11 → ENRESERV 07-15 04:26 → OBSVTOIN 07-16 09:27
PROVIDERS: ADMIT Internal Medicine; ATTEND Hospitalist
DX: M62.82 Rhabdomyolysis (principal); N17.0 Acute kidney failure with tubular necrosis; G71.0 Muscular dystrophy; Z82.49 Family history of ischemic heart disease and other diseases of the circulatory system; I10 Essential (primary) hypertension

== ENCOUNTER → 2017-07-19 | Outpatient (CLI) | payer BC ==
[~2017-07-19] MED LIST: FAMO20TA9 PO; GFNSR600 PO; MGNO400 PO
[2017-07-19 12:55] LABS: BLOOD UREA NITROGEN 11 mg/dl (7-18); BUN/CREATININE RATIO 5.1 (10-20); CARBON DIOXIDE 29 mmol/L (21-32); CHLORIDE 105 mmol/L (98-107); CREATININE 2.23 mg/dl (0.60-1.40); GLUCOSE 97 mg/dl (70-99); MAGNESIUM 1.8 mg/dl (1.8-2.4); POTASSIUM 3.6 mmol/L (3.5-5.1); SODIUM 141 mmol/L (136-145)
== END | disposition home or self-care (01) ==
LOC: C.LAB 10:38
PROVIDERS: ATTEND Internal Medicine Nephrology
DX: M62.82 Rhabdomyolysis (principal)

== ENCOUNTER → 2017-07-22 | Outpatient (CLI) | payer BC ==
[2017-07-22 15:10] LABS: BLOOD UREA NITROGEN 20 mg/dl (7-18); BUN/CREATININE RATIO 10.4 (10-20); CALCIUM 9.5 mg/dl (8.5-10.1); CARBON DIOXIDE 26 mmol/L (21-32); CHLORIDE 103 mmol/L (98-107); CREATININE 1.88 mg/dl (0.60-1.40); GLUCOSE 91 mg/dl (70-99); POTASSIUM 3.7 mmol/L (3.5-5.1); SODIUM 139 mmol/L (136-145)
[2017-07-22 15:25] LABS: PHOSPHORUS 3.6 mg/dl (2.5-4.9)
== END | disposition home or self-care (01) ==
LOC: C.LAB 14:00
PROVIDERS: ATTEND Internal Medicine Nephrology
DX: N28.9 Disorder of kidney and ureter, unspecified (principal); M62.82 Rhabdomyolysis

== ENCOUNTER → 2017-08-23 | Outpatient (CLI) | payer BC ==
[2017-08-23 15:22] LABS: BLOOD UREA NITROGEN 11 mg/dl (7-18); BUN/CREATININE RATIO 9.3 (10-20); CARBON DIOXIDE 27 mmol/L (21-32); CHLORIDE 106 mmol/L (98-107); CREATININE 1.15 mg/dl (0.60-1.40); GLUCOSE 92 mg/dl (70-99); PHOSPHORUS 2.5 mg/dl (2.5-4.9); POTASSIUM 3.8 mmol/L (3.5-5.1); SODIUM 140 mmol/L (136-145)
== END | disposition home or self-care (01) ==
LOC: C.LAB 13:09
PROVIDERS: ATTEND Internal Medicine Nephrology
DX: N28.9 Disorder of kidney and ureter, unspecified (principal)

== ENCOUNTER → 2017-09-17 | Outpatient (CLI) | payer BC | END | disposition home or self-care (01) | LOC: C.LAB 12:07 | PROVIDERS: ATTEND Internal Medicine Nephrology | DX: M62.82 Rhabdomyolysis (principal) ==